=== PATIENT | female | born 1970 | race American Indian/Alaskan Native ===

== ENCOUNTER 2017-07-16 03:15 | Observation (INO) | payer OTHER ==
[2017-07-16 04:43] LABS: Basophils % (Auto) 0.6 % (0.0-1.8); Eosinophils % (Auto) 0.7 % (0.0-4.3); Hematocrit 29.5 % (30.3-42.9); Hemoglobin 9.1 gm/dl (10.1-14.3); Mean Corpuscular HGB Conc 31 % (30-34); Platelet Count 273 K/mm3 (140-440); Red Blood Count 4.83 M/mm3 (3.65-5.03); Red Cell Distribution Width 19.2 % (13.2-15.2); White Blood Count 6.1 K/mm3 (4.5-11.0)
[2017-07-16 04:46] LABS: Mean Corpuscular Hemoglobin 19 pg (28-32); Mean Corpuscular Volume 61 fl (79-97)
[2017-07-16 04:51] LABS: Anion Gap 18 mmol/L; BUN/Creatinine Ratio 12; Blood Urea Nitrogen 11 mg/dL (7-17); Calcium 10.4 mg/dL (8.4-10.2); Carbon Dioxide 28 mmol/L (22-30); Chloride 96.6 mmol/L (98-107); Glucose 173 mg/dL (65-100); Potassium 3.1 mmol/L (3.6-5.0); Sodium 139 mmol/L (137-145)
--- NOTE | 2017-07-16 04:55 | XRay Report ---
FINAL REPORT PROCEDURE: XR CHEST ROUTINE 2V TECHNIQUE: A portable AP chest radiograph was obtained at 07/16/2017 03:54 (EST) . CPT 03702 HISTORY: Difficulty in breathing COMPARISON: No prior studies are available for comparison. FINDINGS: Heart: Normal. Mediastinum/Vessels: Normal. Lungs/Pleural space: Normal. Bony thorax: No acute osseous abnormality. Life support devices: None. IMPRESSION: No acute cardiopulmonary abnormality.
[2017-07-16] MEDS ORDERED: PROVENTIL IH ONE (06:16)
[2017-07-16] MEDS ORDERED: APRESOLINE IV ONE (14:08)
[2017-07-16] MEDS ORDERED: K-DUR PO ONE (14:08)
--- NOTE | 2017-07-16 14:14 | Emergency Department Report ---
ED General Adult HPI - General Chief complaint: Chest Pain Stated complaint: Time Seen by Provider: 07/16/17 13:48 Source: patient, RN notes reviewed Mode of arrival: Ambulatory Limitations: No Limitations - History of Present Illness Initial comments: This is a 46-year-old female. She is previously unknown to this provider. She does not have a local primary care doctor. Past medical history includes hypertension and diabetes. Patient presents to the ER with a complaint of chest pain and shortness of breath. The chest pain is central. It did not radiate to the back, arms and neck. There is no vomiting or diaphoresis. There is left lower extremity pain. There is no swelling. Patient thinks that she had an outpatient stress test performed at [facility] in the beginning of the year, does not recall the results. She currently has no chest pain or shortness of breath at this time, there is no hematemesis or bright red blood per rectum, the patient does endorse that she is not , she reports her last menstrual period was last week. -: Gradual Location: chest, left, lower extremity Severity scale (0 -10): 0 Quality: aching Consistency: intermittent, now resolved Improves with: none Worsens with: none Associated Symptoms: shortness of breath - Related Data Home Medications Medication Instructions Recorded Confirmed Last Taken Lisinopril 40 mg PO DAILY 07/16/17 07/16/17 Unknown amLODIPine 10 mg PO DAILY 07/16/17 07/16/17 Unknown metFORMIN 500 mg PO BID 07/16/17 07/16/17 Unknown Allergies Allergy/AdvReac Type Severity Reaction Status Date / Time No Known Allergies Allergy Unverified 07/16/17 03:42 ED Review of Systems ROS: Stated complaint: Other details as noted in HPI Constitutional: fever, malaise Eyes: denies: vision change ENT: denies: epistaxis Respiratory: shortness of breath Cardiovascular: chest pain Gastrointestinal: denies: abdominal pain Genitourinary: denies: dysuria Musculoskeletal: arthralgia. denies: back pain Skin: denies: lesions Neurological: denies: weakness Psychiatric: denies: anxiety ED Past Medical Hx - Past Medical History Hx Hypertension: Yes Hx Diabetes: Yes Additional medical history: Fluid on Lungs - Surgical History Additional Surgical History: Tubal Ligation - Social History Smoking Status: Never Smoker Substance Use Type: None - Medications Home Medications: Home Medications Medication Instructions Recorded Confirmed Last Taken Type Lisinopril 40 mg PO DAILY 07/16/17 07/16/17 Unknown History amLODIPine 10 mg PO DAILY 07/16/17 07/16/17 Unknown History metFORMIN 500 mg PO BID 07/16/17 07/16/17 Unknown History ED Physical Exam - General Limitations: No Limitations General appearance: alert, in no apparent distress - Head Head exam: Present: atraumatic, normocephalic - Eye Eye exam: Present: normal appearance - ENT ENT exam: Present: normal exam, mucous membranes moist, normal external ear exam - Neck Neck exam: Present: normal inspection, full ROM. Absent: tenderness, meningismus - Respiratory Respiratory exam: Present: normal lung sounds bilaterally, chest wall tenderness. Absent: respiratory distress, wheezes, rales, rhonchi, stridor - Cardiovascular Cardiovascular Exam: Present: regular rate, normal rhythm, normal heart sounds, other (2+ pulses are noted in the bilateral upper and lower extremities. They are equal.). Absent: bradycardia, tachycardia, irregular rhythm, systolic murmur, diastolic murmur, rubs, gallop - GI/Abdominal GI/Abdominal exam: Present: soft, normal bowel sounds. Absent: distended, tenderness, guarding, rebound, rigid, pulsatile mass - Extremities Exam Extremities exam: Present: normal inspection, normal capillary refill. Absent: pedal edema, joint swelling - Back Exam Back exam: Present: normal inspection, full ROM. Absent: tenderness, CVA tenderness (R), CVA tenderness (L), muscle spasm, paraspinal tenderness, vertebral tenderness - Neurological Exam Neurological exam: Present: alert, oriented X3, normal gait, other (Extraocular movements intact. Tongue midline. No facial droop. Facial sensation intact to light touch in the V1, V2, V3 distribution bilaterally. 5 and 5 strength in 4 extremities.. Sensation is intact to light touch in 4 extremities.). Absent : motor sensory deficit - Psychiatric Psychiatric exam: Present: normal affect, normal mood - Skin Skin exam: Present: warm, dry, intact, normal color. Absent: rash ED Course Vital Signs 07/16/17 07/16/17 07/16/17 03:38 09:26 12:55 Temperature 98.3 F 98.2 F 98.2 F Pulse Rate 87 78 78 Respiratory 16 16 16 Rate Blood Pressure 178/92 Blood Pressure 184/95 186/105 [Left] O2 Sat by Pulse 98 97 98 Oximetry 07/16/17 07/16/17 07/16/17 13:04 14:11 14:15 Temperature Pulse Rate 80 89 Respiratory 16 18 26 H Rate Blood Pressure Blood Pressure [Left] O2 Sat by Pulse 98 100 98 Oximetry 07/16/17 07/16/17 07/16/17 14:31 14:45 14:57 Temperature Pulse Rate 80 79 78 Respiratory 24 23 Rate Blood Pressure 190/101 190/101 190/101 Blood Pressure [Left] O2 Sat by Pulse 98 99 Oximetry 07/16/17 07/16/17 07/16/17 15:00 15:15 15:31 Temperature Pulse Rate 88 88 89 Respiratory 23 19 18 Rate Blood Pressure 191/92 191/92 191/92 Blood Pressure [Left] O2 Sat by Pulse 98 100 Oximetry 07/16/17 07/16/17 07/16/17 15:45 16:00 16:29 Temperature Pulse Rate 94 H 96 H Respiratory 16 21 Rate Blood Pressure 191/92 166/87 191/92 Blood Pressure [Left] O2 Sat by Pulse 74 L 97 88 Oximetry 07/16/17 07/16/17 07/16/17 16:31 16:45 17:01 Temperature Pulse Rate 99 H 92 H 95 H Respiratory 18 14 14 Rate Blood Pressure 191/92 191/92 138/57 Blood Pressure [Left] O2 Sat by Pulse 99 97 93 Oximetry 07/16/17 07/16/17 17:15 17:31 Temperature Pulse Rate 89 94 H Respiratory 22 21 Rate Blood Pressure 166/87 166/87 Blood Pressure [Left] O2 Sat by Pulse 96 97 Oximetry - Reevaluation(s) Reevaluation #1: 07/16/17 15:48 Differential diagnosis: Pulmonary embolus, dissection, hypertensive cardiomyopathy, acute coronary syndrome Assessment and plan: 46-year-old female with typical chest pain, abnormal EKG, poor R-wave progression, markedly hypertensive, most likely EKG changes are secondary to hypertension induced cardio myopathy/hypertension-related findings. Her troponins are negative and she feels quite comfortable at this time, for x-ray the chest is negative, and she has equal pulses in 4 extremities. No pulmonary embolus or DVT risk factors, low risk by well's criteria, perc negative. However given chest pain, hypertension, CT scan of the chest will be obtained. She is chest pain-free at this time, hydralazine order for hypertension. As he did not chew glycerin also ordered. Reevaluation #2: 07/16/17 17:54 CT scan of the chest negative for acute disease. Incidental findings noted. Case discussed with Hospital physician, Dr. Reed, who accepted the patient to the medical service. ED Medical Decision Making - Lab Data Result diagrams: 07/16/17 04:08 07/16/17 04:08 Vital Signs 07/16/17 07/16/17 07/16/17 03:38 09:26 12:55 Temperature 98.3 F 98.2 F 98.2 F Pulse Rate 87 78 78 Respiratory 16 16 16 Rate Blood Pressure 178/92 Blood Pressure 184/95 186/105 [Left] O2 Sat by Pulse 98 97 98 Oximetry 07/16/17 07/16/17 13:04 14:57 Temperature Pulse Rate 78 Respiratory 16 Rate Blood Pressure 190/101 Blood Pressure [Left] O2 Sat by Pulse 98 Oximetry Lab Results 07/16/17 07/16/17 07/16/17 Range/Units 03:55 04:08 04:08 WBC 6.1 (4.5-11.0) K/mm3 RBC 4.83 (3.65-5.03) M/mm3 Hgb 9.1 L (10.1-14.3) gm/dl Hct 29.5 L (30.3-42.9) % MCV 61 L (79-97) fl MCH 19 L (28-32) pg MCHC 31 (30-34) % RDW 19.2 H (13.2-15.2) % Plt Count 273 (140-440) K/mm3 Lymph % (Auto) 24.9 (13.4-35.0) % [facility] % (Auto) 6.6 (0.0-7.3) % Eos % (Auto) 0.7 (0.0-4.3) % Baso % (Auto) 0.6 (0.0-1.8) % Lymph # 1.5 (1.2-5.4) K/mm3 [facility] # 0.4 (0.0-0.8) K/mm3 Eos # 0.0 (0.0-0.4) K/mm3 Baso # 0.0 (0.0-0.1) K/mm3 Seg Neutrophils % 67.2 (40.0-70.0) % Seg Neutrophils # 4.1 (1.8-7.7) K/mm3 Sodium 139 (137-145) mmol/L Potassium 3.1 L (3.6-5.0) mmol/L Chloride 96.6 L (98-107) mmol/L Carbon Dioxide 28 (22-30) mmol/L Anion Gap 18 mmol/L BUN 11 (7-17) mg/dL Creatinine 0.9 (0.7-1.2) mg/dL Estimated GFR > 60 ml/min BUN/Creatinine Ratio 12 % Glucose 173 H (65-100) mg/dL POC Glucose 191 H (70-105) Calcium 10.4 H (8.4-10.2) mg/dL Magnesium (1.7-2.3) mg/dL Troponin T < 0.010 (0.00-0.029) ng/mL NT-Pro-B Natriuret Pep 528.6 H (0-450) pg/mL 07/16/17 07/16/17 07/16/17 Range/Units 07:03 10:15 10:15 WBC (4.5-11.0) K/mm3 RBC (3.65-5.03) M/mm3 Hgb (10.1-14.3) gm/dl Hct (30.3-42.9) % MCV (79-97) fl MCH (28-32) pg MCHC (30-34) % RDW (13.2-15.2) % Plt Count (140-440) K/mm3 Lymph % (Auto) (13.4-35.0) % [facility] % (Auto) (0.0-7.3) % Eos % (Auto) (0.0-4.3) % Baso % (Auto) (0.0-1.8) % Lymph # (1.2-5.4) K/mm3 [facility] # (0.0-0.8) K/mm3 Eos # (0.0-0.4) K/mm3 Baso # (0.0-0.1) K/mm3 Seg Neutrophils % (40.0-70.0) % Seg Neutrophils # (1.8-7.7) K/mm3 Sodium (137-145) mmol/L Potassium (3.6-5.0) mmol/L Chloride (98-107) mmol/L Carbon Dioxide (22-30) mmol/L Anion Gap mmol/L BUN (7-17) mg/dL Creatinine (0.7-1.2) mg/dL Estimated GFR ml/min BUN/Creatinine Ratio % Glucose (65-100) mg/dL POC Glucose (70-105) Calcium (8.4-10.2) mg/dL Magnesium 1.80 (1.7-2.3) mg/dL Troponin T < 0.010 < 0.010 (0.00-0.029) ng/mL NT-Pro-B Natriuret Pep (0-450) pg/mL - EKG Data -: EKG Interpreted by Me - EKG Data 07/16/17 15:49 Sinus, 86 bpm, normal axis, high left ventricular voltage, poor R-wave progression, abnormal EKG, not morphologically consistent with STEMI, there is no prior for comparison. Repeat EKG unchanged. - Radiology Data Radiology results: report reviewed, image reviewed interpreted by me: X-ray of the chest negative for acute disease CT scan of the chest is negative for acute finding Critical care attestation.: If time is entered above; I have spent that time in minutes in the direct care of this critically ill patient, excluding procedure time. ED Disposition Clinical Impression: Chest pain, Abnormal EKG, Hypertension Disposition: OP ADMIT IP TO THIS HOSP Is pt being admited?: Yes Does the pt Need Aspirin: Yes Condition: Stable Instructions: Chest Pain (ED), Hypertension (ED) Referrals: PRIMARY CARE, [Primary Care Provider] - 3-5 Days
[2017-07-16] MEDS: KCL 10MEQ/100ML 10 MEQ/100 ML BAG IV SCH ×2 (14:52→17:41)
[2017-07-16] MEDS ORDERED: NACL 0.9% 250ML 250 ML ONE (15:03)
[2017-07-16] MEDS ORDERED: NACL 0.9% 250ML 250 ML IV ONE (15:19)
[2017-07-16] MEDS ORDERED: NITROSTAT SL PRN (15:50)
--- NOTE | 2017-07-16 17:41 | Cat Scan Report ---
FINAL REPORT PROCEDURE: CT ANGIO CHEST TECHNIQUE: Computerized tomographic angiography of the chest was performed after the IV injection of iodinated nonionic contrast including image processing. The image data was postprocessed using 2-dimensional multiplanar reformatted (MPR) and 3-dimensional (MIP and/or volume rendered) techniques. HISTORY: Chest pain. Short of breath. Evaluate pulmonary embolus. COMPARISON: No prior studies are available for comparison. FINDINGS: Pulmonary outflow tract, right and left main pulmonary arteries and their proximal branches: Clear, no filling defects seen to suggest pulmonary embolus. Pericardium: No evidence of pericardial effusion. Heart size upper normal to mildly enlarged. Thoracic aorta: No evidence of aneurysmal dilatation or dissection. Coronary arteries: Are unremarkable. Mediastinum and hilar regions: Nonspecific subcentimeter lymph nodes are visualized. No pathologically enlarged lymph nodes or masses are identified. Thyroid gland appears to be enlarged and nodular. Consider follow-up thyroid ultrasound for further evaluation. Lung Reese: Small amount of dependent atelectasis appears to be present bilaterally. No dense consolidations or effusions are seen. There is no evidence of pneumothorax. Upper abdomen: There is a 2.6 centimeter low-density nodule in the upper 3rd of the right kidney which appears represent a peripelvic cyst. The upper abdomen is otherwise unremarkable. Other: There is mild to moderate thoracic scoliosis. No acute bony abnormalities are identified. IMPRESSION: No evidence of pulmonary embolus. Dependent atelectasis visualized. Peripelvic cyst visualize right kidney. Thoracic scoliosis. Thyroid gland appears to be enlarged and somewhat nodular. Consider follow-up thyroid ultrasound.
[2017-07-16] MEDS ORDERED: BABY ASPIRIN PO ONE (17:55)
--- NOTE | 2017-07-16 19:06 | History and Physical Report ---
History of Present Illness Date of examination: 07/16/17 Date of admission: 07/16/17 17:55 Chief complaint: CC: SOB on minimal exertion 2 ) Chest tightness since AM History of present illness: JUAN 46 y/o AAF with history of HTN and T2dm comes in for chest tightness since AM .Intermittent in nature.Not radiating.Pain is about 6/10.No diaphoresis or palpitations.. Has Sob on minimal exertion and lying flat.Very poor historian.No fever or chills.No recent travel.No exacerbating or relieving factors. Past History Past Medical History: diabetes, hypertension Social history: lives with family, full code Family history: hypertension Medications and Allergies Allergies Allergy/AdvReac Type Severity Reaction Status Date / Time No Known Allergies Allergy Unverified 07/16/17 03:42 Home Medications Medication Instructions Recorded Confirmed Last Taken Type Lisinopril 40 mg PO DAILY 07/16/17 07/16/17 Unknown History amLODIPine 10 mg PO DAILY 07/16/17 07/16/17 Unknown History metFORMIN 500 mg PO BID 07/16/17 07/16/17 Unknown History Active Meds: Active Medications Nitroglycerin (Nitrostat) 0.4 mg SL .Q5MIN PRN PRN Reason: Chest Pain Review of Systems All systems: negative Constitutional: no weight loss, no weight gain, no fever, no chills, no sweats, no night sweats Ears, nose, mouth and throat: no dysphagia, no hoarseness, no sore throat, no swelling in mouth Breasts: deferred Cardiovascular: chest pain, orthopnea, shortness of breath, dyspnea on exertion Respiratory: shortness of breath, dyspnea on exertion, no cough, no cough with sputum, no excessive sputum, no hemoptysis, no congestion, no wheezing, no pleurisy Gastrointestinal: no abdominal pain, no nausea, no vomiting, no diarrhea, no constipation, no change in bowel habits, no hematemesis, no coffee ground emesis Genitourinary Female: no flank pain, no menorrhagia, no dysuria, no urinary frequency, no urgency, no stress incontinence Menstruation: currently menstrual Musculoskeletal: no neck stiffness, no neck pain, no shooting arm pain, no arm numbness/tingling, no low back pain, no shooting leg pain, no leg numbness/ tingling, no redness of joints Integumentary: no rash, no pruritis, no redness, no sores, no wounds, no jaundice, no boils, no blisters Neurological: no head injury, no transient paralysis, no paralysis, no weakness , no parathesias, no numbness, no seizures, no syncope Psychiatric: no anxiety, no memory loss, no change in sleep habits, no sleep disturbances Endocrine: no cold intolerance, no heat intolerance, no polyphagia, no excessive thirst, no polydipsia, no polyuria Hematologic/Lymphatic: no easy bruising, no easy bleeding Allergic/Immunologic: no urticaria, no allergic rhinitis, no wheezing Exam - Physical Exam Narrative exam: Lying comfortably - Constitutional Vitals: Temp Pulse Resp BP Pulse Ox 98.2 F 94 H 21 166/87 97 07/16/17 12:55 07/16/17 17:31 10 17:31 07/16/17 17:31 07/16/17 17:31 General appearance: Present: no acute distress, well-nourished - EENT Eyes: Present: PERRL ENT: hearing intact, clear oral mucosa - Neck Neck: Present: supple, normal ROM - Respiratory Respiratory effort: normal Respiratory: bilateral: CTA - Cardiovascular Heart rate: 70 Rhythm: regular Heart Sounds: Present: S1 & S2. Absent: rub, click - Extremities Extremities: no ischemia, pulses intact, pulses symmetrical, No edema Peripheral Pulses: within normal limits - Abdominal General gastrointestinal: Present: soft, non-tender, non-distended, normal bowel sounds Female genitourinary: Present: normal - Rectal Rectal Exam: deferred - Integumentary Integumentary: Present: clear, warm, dry - Musculoskeletal Musculoskeletal: gait normal, strength equal bilaterally - Psychiatric Psychiatric: appropriate mood/affect, intact judgment & insight - Neurologic Neurologic: CNII-XII intact, moves all extremities - Allied Health Allied health notes reviewed: nursing, case management Results - Labs CBC & Chem 7: 07/17/17 05:33 07/17/17 05:33 Labs: Laboratory Last Values WBC 6.1 K/mm3 (4.5-11.0) 07/16/17 04:08 RBC 4.83 M/mm3 (3.65-5.03) 07/16/17 04:08 Hgb 9.1 gm/dl (10.1-14.3) L 07/16/17 04:08 Hct 29.5 % (30.3-42.9) L 07/16/17 04:08 MCV 61 fl (79-97) L 07/16/17 04:08 MCH 19 pg (28-32) L 07/16/17 04:08 MCHC 31 % (30-34) 07/16/17 04:08 RDW 19.2 % (13.2-15.2) H 07/16/17 04:08 Plt Count 273 K/mm3 (140-440) 07/16/17 04:08 Lymph % (Auto) 24.9 % (13.4-35.0) 07/16/17 04:08 [facility] % (Auto) 6.6 % (0.0-7.3) 07/16/17 04:08 Eos % (Auto) 0.7 % (0.0-4.3) 07/16/17 04:08 Baso % (Auto) 0.6 % (0.0-1.8) 07/16/17 04:08 Lymph # 1.5 K/mm3 (1.2-5.4) 07/16/17 04:08 [facility] # 0.4 K/mm3 (0.0-0.8) 07/16/17 04:08 Eos # 0.0 K/mm3 (0.0-0.4) 07/16/17 04:08 Baso # 0.0 K/mm3 (0.0-0.1) 07/16/17 04:08 Seg Neutrophils % 67.2 % (40.0-70.0) 07/16/17 04:08 Seg Neutrophils # 4.1 K/mm3 (1.8-7.7) 07/16/17 04:08 Sodium 139 mmol/L (137-145) 07/16/17 04:08 Potassium 3.1 mmol/L (3.6-5.0) L 07/16/17 04:08 Chloride 96.6 mmol/L (98-107) L 07/16/17 04:08 Carbon Dioxide 28 mmol/L (22-30) 07/16/17 04:08 Anion Gap 18 mmol/L 07/16/17 04:08 BUN 11 mg/dL (7-17) 07/16/17 04:08 Creatinine 0.9 mg/dL (0.7-1.2) 07/16/17 04:08 Estimated GFR > 60 ml/min 07/16/17 04:08 BUN/Creatinine Ratio 12 % 07/16/17 04:08 Glucose 173 mg/dL (65-100) H 07/16/17 04:08 POC Glucose 191 (70-105) H 07/16/17 03:55 Calcium 10.4 mg/dL (8.4-10.2) H 07/16/17 04:08 Magnesium 1.80 mg/dL (1.7-2.3) 07/16/17 10:15 Troponin T < 0.010 ng/mL (0.00-0.029) 07/16/17 10:15 NT-Pro-B Natriuret Pep 528.6 pg/mL (0-450) H 07/16/17 04:08 - Imaging and Cardiology EKG: report reviewed Chest x-ray: report reviewed (NAF) Imaging and Cardiology: CTA-No PE.Thyroid gland enlarged.Ultrasound suggested Assessment and Plan Advance Directives: Yes (Full code) VTE prophylaxis?: Chemical Plan of care discussed with patient/family: Yes - Patient Problems (1) Chest pain in adult Current Visit: Yes Status: Acute Plan to address problem: R/o [place] protocol.Serial cardiac enzymes and Lexiscan. (2) Acute exacerbation of CHF (congestive heart failure) Current Visit: Yes Status: Acute Qualifiers: Congestive heart failure type: diastolic Qualified Code(s): I50.33 - Acute on chronic diastolic (congestive) heart failure Plan to address problem: IV Lasix and check ECHO. BNP in mid 500's (3) Anemia Current Visit: Yes Status: Chronic Qualifiers: Anemia type: iron deficiency Iron deficiency anemia type: chronic blood loss Vitamin B12 deficiency anemia type: V Folate deficiency anemia type: F Bone marrow failure anemia type: B Hemolytic anemia type: H Other causes of anemia: O Chronic kidney disease stage: C Qualified Code(s): D50.0 - Iron deficiency anemia secondary to blood loss (chronic) Plan to address problem: Iron /B12 levels ordered (4) Hypokalemia Current Visit: Yes Status: Acute Plan to address problem: Supplemented (5) HTN (hypertension), benign Current Visit: Yes Status: Chronic Plan to address problem: Cont Amlodipine and Lisinopril (6) T2DM (type 2 diabetes mellitus) Current Visit: Yes Status: Chronic Qualifiers: Diabetes mellitus complication status: without complication Diabetes mellitus complication detail: D Diabetic retinopathy severity: D Proliferative retinopathy type: P Diabetes mellitus macular edema: D Diabetes mellitus intermediate insulin use: D Laterality: L Chronic kidney disease stage: C Plan to address problem: Cont Metformin and coverage (7) DVT prophylaxis Current Visit: Yes Status: Acute Plan to address problem: on Lovenox
[2017-07-16] MEDS ORDERED: DILAUDID IV PRN (19:13)
[2017-07-16] MEDS ORDERED: AMBIEN PO PRN ×2 (19:13→22:00)
[2017-07-16] MEDS ORDERED: PERCOCET 5/325 PO PRN (19:13)
[2017-07-16] MEDS ORDERED: MILK OF MAGNESIA PO PRN (19:13)
[2017-07-16] MEDS ORDERED: ZOFRAN IV PRN (19:13)
[2017-07-16] MEDS ORDERED: DULCOLAX PR PRN (19:13)
[2017-07-16] MEDS ORDERED: TYLENOL PO PRN (19:13)
[2017-07-16] MEDS: PEPCID IV SCH (22:29)
[2017-07-17 06:01] LABS: Basophils % (Auto) 0.9 % (0.0-1.8); Hematocrit 28.5 % (30.3-42.9); Hemoglobin 8.8 gm/dl (10.1-14.3); Mean Corpuscular HGB Conc 31 % (30-34); Platelet Count 236 K/mm3 (140-440); Red Blood Count 4.63 M/mm3 (3.65-5.03); Red Cell Distribution Width 19.1 % (13.2-15.2); White Blood Count 5.1 K/mm3 (4.5-11.0)
[2017-07-17 06:03] LABS: Mean Corpuscular Hemoglobin 19 pg (28-32); Mean Corpuscular Volume 62 fl (79-97)
[2017-07-17 06:27] LABS: Alanine Aminotransferase 8 units/L (7-56); Albumin 3.6 g/dL (3.9-5); Albumin/Globulin Ratio 1.2 %; Alkaline Phosphatase 31 units/L (35-129); Anion Gap 16 mmol/L; BUN/Creatinine Ratio 13; Blood Urea Nitrogen 10 mg/dL (7-17); Calcium 9.6 mg/dL (8.4-10.2); Carbon Dioxide 25 mmol/L (22-30); Glucose 144 mg/dL (65-100); Potassium 3.2 mmol/L (3.6-5.0); Sodium 139 mmol/L (137-145); Total Protein 6.5 g/dL (6.3-8.2)
[2017-07-17] MEDS: NOVOLOG SUB-Q SCH ×4 (08:00→22:03)
[2017-07-17] MEDS ORDERED: K-DUR PO ONE (08:30)
[2017-07-17] MEDS ORDERED: LEXISCAN IV ONE ×2 (08:39→08:40)
[2017-07-17] MEDS: GLUCOPHAGE PO SCH ×2 (09:00→17:53)
[2017-07-17] MEDS ORDERED: LASIX IV SCH (10:00)
[2017-07-17] MEDS ORDERED: NON-FORMULARY (Metformin 500 MG) PO SCH (10:00)
[2017-07-17] MEDS ORDERED: NON-FORMULARY (Lisinopril 40 MG) PO SCH (10:00)
[2017-07-17] MEDS ORDERED: NON-FORMULARY (Amlodipine 10 MG) PO SCH (10:00)
[2017-07-17] MEDS: PEPCID IV SCH (11:56)
[2017-07-17] MEDS: ZESTRIL PO SCH (11:57)
[2017-07-17] MEDS: NORVASC PO SCH (11:57)
[2017-07-17] MEDS: APRESOLINE IV PRN ×2 (12:48→17:54)
--- NOTE | 2017-07-17 14:09 | Event Note ---
Date: 07/17/17 Detailed cardiology consultation dictated. A: #1: Chest pain #2: Accelerated HTN #3: DM #4: ? cardiomyopathy #5: Anemia #6: Hypokalemia P: S/p lexiscan MPI stress test this AM which was negative for ischemia, EF 45%. Await echo results. Optimize anti-hypertensive regimen. Replete serum K+. Wendi GARCIA NP / DR. ROSEN
--- NOTE | 2017-07-17 15:13 | Progress Note ---
Assessment and Plan Assessment and plan: Patient is a 46 y/o AAF with history of HTN and T2dm comes in for chest tightness since AM .Intermittent in nature.Not radiating.Pain is about 6/10.No diaphoresis or palpitations.. Patient reports her blood pressure normally runs above 180 at home due to lack of compliance with medications. This is secondary to lack of primary care physician. She proceeded to have stress test done and is negative. Atypical chest pain likely secondary to Hypertensive urgency * Negative stress test, continue metoprolol, Norvasc, lisinopril Hypertensive urgency * Add hydralazine prn, BB, NORVASC, Lisinopril. Diabetes Mellitus * Continue metformin, sliding scale coverage Cardiomyopathy-?Hypertensive * No evidence of CHF, monitor Echo Anemia * Stable, recommend outpatient GI eval. Hypokalemia * Replaced Metabolic Acidosis * give sodium bicarbonate Enlarged Thyroid * Outpatient Ultrasound evaluation with PCP. DVT/GI * Enoxparin History Interval history: Patient seen and examined in no acute distress Hospitalist Physical - Physical exam Narrative exam: VITAL SIGNS: Reviewed. GENERAL: The patient appeared well nourished and normally developed. Vital signs as documented. HEAD: No signs of head trauma. EYES: Pupils are equal. Extraocular motions intact. EARS: Hearing grossly intact. MOUTH: Oropharynx is normal. NECK: No adenopathy, no JVD. CHEST: Chest with clear breath sounds bilaterally. No wheezes, rales, or rhonchi. CARDIAC: Regular rate and rhythm. S1 and S2, without murmurs, gallops, or rubs. VASCULAR: No Edema. Peripheral pulses normal and equal in all extremities. ABDOMEN: Soft, without detectable tenderness. No sign of distention. No rebound or guarding, and no masses palpated. Bowel Sounds normal. MUSCULOSKELETAL: Good range of motion of all major joints. Extremities without clubbing, cyanosis or edema. NEUROLOGIC EXAM: Alert and oriented x 3. No focal sensory or strength deficits. Speech normal. Follows commands. PSYCHIATRIC: Mood normal. SKIN: No rash or lesions. - Constitutional Vitals: Temp Pulse Resp BP Pulse Ox 98.1 F 83 18 202/111 100 07/17/17 05:05 07/17/17 12:48 07/17/17 05:05 07/17/17 12:48 07/17/17 05:05 General appearance: Present: no acute distress, well-nourished Results - Labs CBC & Chem 7: 07/17/17 05:33 07/17/17 05:33 Labs: Laboratory Last Values WBC 5.1 K/mm3 (4.5-11.0) 07/17/17 05:33 RBC 4.63 M/mm3 (3.65-5.03) 07/17/17 05:33 Hgb 8.8 gm/dl (10.1-14.3) L 07/17/17 05:33 Hct 28.5 % (30.3-42.9) L 07/17/17 05:33 MCV 62 fl (79-97) L 07/17/17 05:33 MCH 19 pg (28-32) L 07/17/17 05:33 MCHC 31 % (30-34) 07/17/17 05:33 RDW 19.1 % (13.2-15.2) H 07/17/17 05:33 Plt Count 236 K/mm3 (140-440) 07/17/17 05:33 Lymph % (Auto) 30.6 % (13.4-35.0) 07/17/17 05:33 Robertson % (Auto) 8.7 % (0.0-7.3) H 07/17/17 05:33 Eos % (Auto) 1.0 % (0.0-4.3) 07/17/17 05:33 Baso % (Auto) 0.9 % (0.0-1.8) 07/17/17 05:33 Lymph # 1.5 K/mm3 (1.2-5.4) 07/17/17 05:33 Robertson # 0.4 K/mm3 (0.0-0.8) 07/17/17 05:33 Eos # 0.1 K/mm3 (0.0-0.4) 07/17/17 05:33 Baso # 0.0 K/mm3 (0.0-0.1) 07/17/17 05:33 Seg Neutrophils % 58.8 % (40.0-70.0) 07/17/17 05:33 Seg Neutrophils # 3.0 K/mm3 (1.8-7.7) 07/17/17 05:33 Sodium 139 mmol/L (137-145) 07/17/17 05:33 Potassium 3.2 mmol/L (3.6-5.0) L 07/17/17 05:33 Chloride 101.0 mmol/L (98-107) 07/17/17 05:33 Carbon Dioxide 25 mmol/L (22-30) 07/17/17 05:33 Anion Gap 16 mmol/L 07/17/17 05:33 BUN 10 mg/dL (7-17) 07/17/17 05:33 Creatinine 0.8 mg/dL (0.7-1.2) 07/17/17 05:33 Estimated GFR > 60 ml/min 07/17/17 05:33 BUN/Creatinine Ratio 13 % 07/17/17 05:33 Glucose 144 mg/dL (65-100) H 07/17/17 05:33 POC Glucose 141 (70-105) H 07/16/17 21:16 Hemoglobin A1c 7.1 % (4-6) H 07/16/17 20:15 Calcium 9.6 mg/dL (8.4-10.2) 07/17/17 05:33 Magnesium 1.80 mg/dL (1.7-2.3) 07/16/17 10:15 Iron 16 ug/dL (37-170) L 07/17/17 07:16 TIBC 359 mcg/dL (250-450) 07/17/17 07:16 % Saturation 4.46 % 07/17/17 07:16 Transferrin 309 mg/dl (192-382) 07/17/17 07:16 Total Bilirubin 0.20 mg/dL (0.1-1.2) 07/17/17 05:33 AST 8 units/L (5-40) 07/17/17 05:33 ALT 8 units/L (7-56) 07/17/17 05:33 Alkaline Phosphatase 31 units/L (35-129) L 07/17/17 05:33 Troponin T < 0.010 ng/mL (0.00-0.029) 07/16/17 10:15 NT-Pro-B Natriuret Pep 528.6 pg/mL (0-450) H 07/16/17 04:08 Total Protein 6.5 g/dL (6.3-8.2) 07/17/17 05:33 Albumin 3.6 g/dL (3.9-5) L 07/17/17 05:33 Albumin/Globulin Ratio 1.2 % 07/17/17 05:33 Vitamin B12 212.8 pg/mL (211-911) 07/17/17 07:16 - Imaging and Cardiology CT scan - chest: image reviewed (no acute pathology)
--- NOTE | 2017-07-17 21:37 | Treadmill Report ---
REASON FOR STUDY: Chest pain. IMAGING PROTOCOL: The patient received 10 mCi of Technetium 99m Tetrofosmin for resting image and 28 mCi of Technetium 99m Tetrofosmin for stress imaging. The imaging for the whole procedure was completed 30-90 minutes following the initial injection of Technetium 99m tetrofosmin. The SPECT imaging in the 180 degree arc was performed in the right anterior oblique projection. Computerized reconstruction of the images was performed for analysis. IMAGING RESULTS: Cavity is mildly dilated, stress and rest. Distribution radionuclide is normal in the anterior, inferior, septal, and apical regions. EF of 35% with moderate global hypokinesis. The patient infused Lexiscan with no EKG changes. SUMMARY: 1. Negative Lexiscan EKG. 2. Normal rest and stress myocardial perfusion scan. No significant stress ischemia noted. 3. Gated SPECT; EF around 35%, moderate global hypokinesis, we would suggest an echocardiogram for determination of LV function. JOB# [id number] ARABELLA/RUTHY
[2017-07-17] MEDS ORDERED: LOPRESSOR PO SCH (22:00)
[2017-07-17] MEDS: LOPRESSOR PO SCH (22:02)
[2017-07-17] MEDS: PEPCID PO SCH (22:02)
--- NOTE | 2017-07-18 01:08 | Consultation ---
Consultation is requested by Dr. Reed. CONSULTING PHYSICIAN: Dr. Wendi Rogers HISTORY OF PRESENT ILLNESS: This is a 46-year-old -[place] female who was admitted to the hospital with complaints of chest tightness and shortness of breath for further evaluation and management. History is now obtained from the patient. The patient stated that she is known to have hypertension and type 2 diabetes mellitus and she has been taking medications. Then, she started experiencing a tightness type of feeling over the anterior chest that is in retrosternal area at about 10:00 p.m. It persisted until 3:00 a.m. in the morning and finally it subsided. That is when she decided to come to the Emergency Room. The patient was evaluated and then admitted to the hospital. She does give a history of some exertional dyspnea, but the patient said that even though that she does not exercise regularly, she stays active. No history of any orthopnea or PND. She does complain of edema of the ankles. No history of any claudications. No dizziness or syncope. No history of any orthopnea or PND. The patient denies any history of wheezing or asthma. No GI or complaints at the present time. She is a nonsmoker and nonalcoholic. The patient stated that she was admitted to [facility] in 10/2016 with complaints of chest tightness, and at that time, she had a stress thallium test done, which apparently was reported normal. We do not have those records available at the present time. PAST MEDICAL HISTORY: Includes Hypertension, type 2 diabetes mellitus. SOCIAL HISTORY: The patient lives with family. FAMILY HISTORY: Hypertension noted. ALLERGIES: None known to medications. MEDICATIONS: At the time of admission, the patient was on lisinopril 40 mg p.o. daily, amlodipine 10 mg p.o. daily, metformin 500 mg p.o. b.i.d. REVIEW OF SYSTEMS: CARDIOVASCULAR: As described above. RESPIRATORY: No history of wheezing or asthma. No GI or complaints at this time. PHYSICAL EXAMINATION: GENERAL: This is a 46-year-old woman, well-built, well nourished, in no acute distress at the present time. The patient is conscious, alert, oriented, and afebrile. Bowel sounds are normal and stable. VITAL SIGNS: At the time of admission, the patient's temperature was normal. Blood pressure was 166/87 and heart rate was 94 per minute and regular. CHEST: Clear. No rales or rhonchi. CARDIOVASCULAR: S1, S2 heard well. Grade 1/6 systolic murmur noted. No diastolic murmur. No gallops. ABDOMEN: Soft, nontender. Grossly nonpalpable. Bowel sounds are heard normally. EXTREMITIES: Trace edema. No calf tenderness. Good pedal pulses. NEUROLOGIC: Evaluation was grossly within normal limits. LABORATORY DATA: The patient's hemoglobin was 8.8, hematocrit was 28.5, platelet count was 236,000. The patient's blood sugar was 144 and BUN was 10, creatinine 0.8 and potassium was 3.2. ASSESSMENT AND PLAN: This is a 46-year-old female who is now admitted to the hospital with complaints of chest tightness of prolonged nature prior to admission for further evaluation and management. The patient is known to have hypertension and type 2 diabetes mellitus. On admission, the patient was also noted to be anemic and she has hypokalemia on the laboratory data. Following admission, myocardial infarction was ruled out. The patient underwent a stress thallium test this morning, which showed no significant reversible ischemia. Calculated ejection fraction was 45%. I had a long discussion with the patient. I did explain to her that the test is negative for any suggestion of ischemia or angina. We will try to obtain echocardiogram to assess the LV function and make sure that is normal. Meanwhile, we will correct the hypokalemia. Anemia needs followup. I explained this to her too. Importance of keeping the blood pressure, blood sugar and cholesterol under control was discussed with the patient. Limitations of stress thallium test also explained to the patient. We will follow up on the echocardiogram. Thank you very much for this consultation. JOB# [id number] TREASURE/URTHY
[2017-07-18 05:00] VITALS: BP 170/84
[2017-07-18] MEDS ORDERED: LASIX IV SCH (06:00)
[2017-07-18 07:04] LABS: Anion Gap 17 mmol/L; BUN/Creatinine Ratio 11; Blood Urea Nitrogen 8 mg/dL (7-17); Calcium 9.9 mg/dL (8.4-10.2); Carbon Dioxide 26 mmol/L (22-30); Chloride 98.2 mmol/L (98-107); Glucose 146 mg/dL (65-100); Potassium 3.3 mmol/L (3.6-5.0); Sodium 138 mmol/L (137-145)
[2017-07-18] MEDS: NOVOLOG SUB-Q SCH (07:55)
--- NOTE | 2017-07-18 08:29 | Discharge Summary ---
Providers - Providers Date of Admission: 07/16/17 17:55 Date of discharge: 07/18/17 Attending physician: BRENDA GUEVARA MD 07/16/17 19:13 Consult to Physician [CONS] Routine Consulting Provider: GRETCHEN DUBOSE Reason For Exam: chf/cp Place consult to:: Cliff Notified:: Teresa Phone number called:: in House Was contact made?: Yes If yes, spoke with:: Teresa Time called:: 10:00 Primary care physician: [employer] Hospitalization Reason for admission: chest pain Condition: Stable Hospital course: Patient is a 46 y/o AAF with history of HTN and T2dm comes in for chest tightness since AM .Intermittent in nature.Not radiating.Pain is about 6/10.No diaphoresis or palpitations.. Patient reports her blood pressure normally runs above 180 at home due to lack of compliance with medications. This is secondary to lack of primary care physician. She proceeded to have stress test done and is negative. Patient presented to have a stress test which was negative. Was seen by cardiology and advised about the result of the stress test. Patient's blood pressure was controlled with initiation of home blood pressure medication. Extensive discussion with him about diabetes compliance. No evidence of CHF was noted echocardiogram did reveal an ejection fraction of 40-45% with diastolic dysfunction. Patient was advised on monitoring blood pressure of patient. Monitor diet to include heart healthy diet. She is clinically stable at this time for discharge she did have anemia which I recommended an outpatient GI evaluation to verbalized understanding also recommended outpatient [employer] evaluation clinical condition is stable at this point for discharge advised the patient to follow up on enlarged thyroid and lipid images study with the primary care physician. Discharge diagnoses Atypical chest pain likely secondary to Hypertensive urgency Hypertensive urgency Diabetes Mellitus Cardiomyopathy-?Hypertensive Anemia Diastolic heart failure-stable Hypokalemia Metabolic Acidosis Enlarged Thyroid Disposition: DC-01 TO HOME OR SELFCARE Time spent for discharge: 35 mins Core Measure Documentation - Palliative Care Palliative Care/ Comfort Measures: Not Applicable - Core Measures Any of the following diagnoses?: none - VTE Discharge Requirements Deep Vein Thrombosis/Pulmonary Embolism Present on Admission: No Exam - Physical Exam Narrative exam: VITAL SIGNS: Reviewed. GENERAL: The patient appeared well nourished and normally developed. Vital signs as documented. HEAD: No signs of head trauma. EYES: Pupils are equal. Extraocular motions intact. EARS: Hearing grossly intact. MOUTH: Oropharynx is normal. NECK: No adenopathy, no JVD. CHEST: Chest with clear breath sounds bilaterally. No wheezes, rales, or rhonchi. CARDIAC: Regular rate and rhythm. S1 and S2, without murmurs, gallops, or rubs. VASCULAR: No Edema. Peripheral pulses normal and equal in all extremities. ABDOMEN: Soft, without detectable tenderness. No sign of distention. No rebound or guarding, and no masses palpated. Bowel Sounds normal. MUSCULOSKELETAL: Good range of motion of all major joints. Extremities without clubbing, cyanosis or edema. NEUROLOGIC EXAM: Alert and oriented x 3. No focal sensory or strength deficits. Speech normal. Follows commands. PSYCHIATRIC: Mood normal. SKIN: No rash or lesions. - Constitutional Vitals: Temp Pulse Resp BP Pulse Ox 98.6 F 99 H 18 170/84 99 07/18/17 04:57 07/18/17 04:57 07/18/17 04:57 07/18/17 04:57 07/18/17 04:57 Plan Activity: advance as tolerated, fall precautions Diet: low cholesterol, diabetic Special Instructions: record daily weights, record daily BP diary, record blood sugar diary Additional Instructions: Recommend outpatient eval with Irr[employer] Handler and [employer] to be arranged by PCP. If no PCP patient can follow with [facility] Follow up with: PRIMARY CARE, [Primary Care Provider] - 3-5 Days Prescriptions: amLODIPine 10 mg PO DAILY #30 Famotidine [Pepcid] 20 mg PO BID #30 tablet Lisinopril [Zestril TAB] 40 mg PO QDAY #30 tablet metFORMIN [Glucophage] 500 mg PO BIDDIAB #60 tablet Metoprolol [Lopressor TAB] 25 mg PO BID #60 tablet
[2017-07-18] MEDS: GLUCOPHAGE PO SCH (08:50)
[2017-07-18] MEDS: NORVASC PO SCH (09:23)
[2017-07-18] MEDS: PEPCID PO SCH (09:23)
[2017-07-18] MEDS: LOPRESSOR PO SCH (09:23)
[2017-07-18] MEDS: ZESTRIL PO SCH (09:23)
== END 2017-07-18 12:13 | disposition home or self-care (01) ==
LOC: ED 03:15 → 4A 17:55
PROVIDERS: ADMIT Internal Medicine; ATTEND Internal Medicine
DX: R07.89 Other chest pain (principal); R94.31 Abnormal electrocardiogram [ECG] [EKG]; D64.9 Anemia, unspecified; E87.6 Hypokalemia; E11.9 Type 2 diabetes mellitus without complications; I42.9 Cardiomyopathy, unspecified; E87.2 Acidosis; E04.9 Nontoxic goiter, unspecified; I11.0 Hypertensive heart disease with heart failure; I50.9 Heart failure, unspecified
CPT/HCPCS: 36415; 71020; 71275; 78452; 80048; 80053; 82607; 82747; 82962; 83036; 83550; 83735; 83880; 84484; 85025; 93005; 93010; 93017; 93306; 96361; 96365; 96372; 96375; 96376; 99285; A9502; G0378; J0360; J1940; J2785; J3480; J7050; Q9967; J1815

== ENCOUNTER 2018-04-26 00:41 | Inpatient (IN) | payer OTHER ==
[2018-04-26 01:22] LABS: Basophils # (Auto) 0.1 K/mm3 (0.0-0.1); Basophils % (Auto) 1.4 % (0.0-1.8); Eosinophils # (Auto) 0.1 K/mm3 (0.0-0.4); Eosinophils % (Auto) 0.9 % (0.0-4.3); Hematocrit 26.2 % (30.3-42.9); Hemoglobin 7.9 gm/dl (10.1-14.3); Lymphocytes # (Auto) 1.7 K/mm3 (1.2-5.4); Mean Corpuscular HGB Conc 30 % (30-34); Monocytes # (Auto) 0.5 K/mm3 (0.0-0.8); Monocytes % (Auto) 6.7 % (0.0-7.3); Platelet Count 212 K/mm3 (140-440); Red Cell Distribution Width 19.3 % (13.2-15.2)
[2018-04-26 01:32] LABS: Mean Corpuscular Hemoglobin 19 pg (28-32); Mean Corpuscular Volume 62 fl (79-97)
[2018-04-26 01:38] LABS: Alanine Aminotransferase 21 units/L (7-56); BUN/Creatinine Ratio 13; Blood Urea Nitrogen 13 mg/dL (7-17); Calcium 10.8 mg/dL (8.4-10.2); Hemolysis Index 8
--- NOTE | 2018-04-26 06:43 | Emergency Department Report ---
HPI - General Chief Complaint: Dyspnea/Respdistress Time Seen by Provider: 04/26/18 06:14 - HPI HPI: 47-year-old female presents to the emergency department for complaint of a three-day history of shortness of breath. Symptoms worsen when she is laying flat. It is associated with a mixed dry and productive cough. She denies any chest pain, fever, nausea, vomiting, diaphoresis. She has a history of CHF, diabetes, hypertension and says she is compliant with her medications. 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 She denies any tobacco or illicit drug use or abuse. No recent travel or sick contacts at home. She has not taken anything for her symptoms prior to presentation. ED Past Medical Hx - Past Medical History Hx Hypertension: Yes Hx Congestive Heart Failure: Yes Hx Diabetes: Yes Hx Asthma: No Hx COPD: No Hx HIV: No Additional medical history: Fluid on Lungs - Surgical History Additional Surgical History: Tubal Ligation - Social History Smoking Status: Never Smoker Substance Use Type: Alcohol - Medications Home Medications: Home Medications Medication Instructions Recorded Confirmed Last Taken Type Lisinopril 40 mg PO DAILY 07/16/17 07/16/17 Unknown History metFORMIN 500 mg PO BID 07/16/17 07/16/17 Unknown History Famotidine [Pepcid] 20 mg PO BID #30 tablet 07/18/17 Unknown Rx Lisinopril [Zestril TAB] 40 mg PO QDAY #30 tablet 07/18/17 Unknown Rx Metoprolol [Lopressor TAB] 25 mg PO BID #60 tablet 07/18/17 Unknown Rx amLODIPine 10 mg PO DAILY #30 07/18/17 Unknown Rx amLODIPine [Norvasc] 10 mg PO DAILY #30 tablet 07/18/17 Unknown Rx metFORMIN [Glucophage] 500 mg PO BIDDIAB #60 tablet 07/18/17 Unknown Rx ED Review of Systems ROS: Stated complaint: IDALMIS Other details as noted in HPI Comment: All other systems reviewed and negative Constitutional: denies: chills, fever Eyes: denies: eye pain, eye discharge, vision change ENT: denies: ear pain, throat pain Respiratory: cough, orthopnea, shortness of breath Cardiovascular: denies: chest pain, edema Gastrointestinal: denies: abdominal pain, nausea, diarrhea Genitourinary: denies: urgency, dysuria, discharge Musculoskeletal: denies: back pain, joint swelling, arthralgia Skin: denies: rash, lesions Neurological: denies: headache, weakness, paresthesias Physical Exam - Physical Exam Vital Signs: Vital Signs 04/26/18 04/26/18 00:48 00:55 Temperature 98.4 F 98.8 F Pulse Rate 86 87 Respiratory 18 Rate Blood Pressure 195/116 195/116 O2 Sat by Pulse 99 97 Oximetry Physical Exam: GENERAL: The patient is well-developed well-nourished. HENT: Normocephalic. Atraumatic. Patient has moist mucous membranes. EYES: Extraocular motions are intact. Pupils equal reactive to light bilaterally. NECK: Supple. Trachea is midline. CHEST/LUNGS: Slightly coarse breath sounds. Mild tachypnea but no accessory muscle use. There is no respiratory distress noted. HEART/CARDIOVASCULAR: Regular. There is no tachycardia. There is no murmur. ABDOMEN: Abdomen is soft, nontender. Patient has normal bowel sounds. There is no abdominal distention. SKIN: Skin is warm and dry. NEURO: The patient is awake, alert, and oriented. The patient is cooperative. The patient has no focal neurologic deficits. The patient has normal speech. MUSCULOSKELETAL: There is no tenderness or deformity. There is no limitation range of motion. There is no evidence of acute injury. ED Course Vital Signs 04/26/18 04/26/18 00:48 00:55 Temperature 98.4 F 98.8 F Pulse Rate 86 87 Respiratory 18 Rate Blood Pressure 195/116 195/116 O2 Sat by Pulse 99 97 Oximetry ED Medical Decision Making - Lab Data Result diagrams: 04/26/18 01:02 04/26/18 01:02 - EKG Data -: EKG Interpreted by Me EKG shows normal: sinus rhythm, axis, intervals, QRS complexes, ST-T waves Rate: normal - EKG Data When compared to previous EKG there are: previous EKG unavailable Interpretation: normal EKG - Radiology Data Radiology results: report reviewed, image reviewed interpreted by me: Chest x-ray does not show any acute process. There are no pleural effusions, obvious pneumonia and there is no pneumothorax. CT angiography does not show any pulmonary embolism, or dissection. - Medical Decision Making Patient's been dealing with a few days of some shortness of breath that appears to worsen with exertion and when lying flat. Negative troponins 2 this far the patient does have an elevated BNP of greater than 1500. Chest x-ray does not show any significant pulmonary edema or effusions. She was given a breathing treatment but as soon as she got up to use the bathroom she became winded again. She presented with very elevated blood pressure came down to a slightly more reasonable level with the Lasix and hydralazine. The patient does not have any good follow-up with primary care or cardiology and with her continued dyspnea and she will be admitted to the hospital for further evaluation and treatment. Accepted for admisison by Dr Hameed. - Differential Diagnosis CHF, PE, Asthma, Pneumonia Critical Care Time: No Critical care attestation.: If time is entered above; I have spent that time in minutes in the direct care of this critically ill patient, excluding procedure time. ED Disposition Clinical Impression: Hypertensive urgency CHF exacerbation Qualifiers: Heart failure type: unspecified Qualified Code(s): I50.9 - Heart failure, unspecified Dyspnea Qualifiers: Dyspnea type: shortness of breath Qualified Code(s): R06.02 - Shortness of breath Disposition: OP ADMIT IP TO THIS HOSP Is pt being admited?: Yes Condition: Fair Time of Disposition: 10:27
--- NOTE | 2018-04-26 06:53 | XRay Report ---
FINAL REPORT PROCEDURE: XR CHEST 1V AP TECHNIQUE: Chest radiograph anteroposterior view. CPT 11490 HISTORY: SOB COMPARISON: No prior studies are available for comparison. FINDINGS: Heart: Normal. Mediastinum/Vessels: Normal. Lungs/Pleural space: Normal. Bony thorax: No acute osseous abnormality. IMPRESSION: No acute cardiopulmonary abnormality.
[2018-04-26] MEDS ORDERED: DUONEB *Not for PRN Use IH ONE (07:17)
[2018-04-26] MEDS ORDERED: K-DUR PO ONE (07:35)
[2018-04-26] MEDS ORDERED: LASIX IV ONE ×2 (08:50→10:33)
[2018-04-26] MEDS ORDERED: APRESOLINE IV ONE (08:50)
--- NOTE | 2018-04-26 10:32 | History and Physical Report ---
History of Present Illness Date of examination: 04/26/18 Date of admission: 04/26/18 Chief complaint: Short of breath History of present illness: 47-year-old female with h/o CHFpEF, DM, HTN presents to the emergency department for complaint of a three-day history of shortness of breath , orthopnea. She states that she is compliant with her medications but she ran out of her meds for last few days. She was recently admitted to [facility] for CHF exacerbation. She denies any chest pain. Her BP noted to be elevated in the ER, and called for admission for further evaluation. Past History Past Medical History: diabetes, hypertension, CHFpEF Social history: lives with family, full code Past surgical history: tubal ligation Family history: hypertension Review of System: Constitutional: no fever, no chills, no weight loss Ears, eyes, nose, mouth and throat: no nasal congestion, no nasal discharge, no sinus pressure, no vision change, no red eye. Neck: No neck pain or rigidity. Cardiovascular: No chest pain, + orthopnea, no palpitations, + leg swelling Respiratory: + shortness of breath, no cough, + congestion, no wheezing Gastrointestinal: no abdominal pain, no nausea, no vomiting Genitourinary : no dysuria, no hematuria Musculoskeletal: no joint swelling or muscle ache Integumentary: no rash, no pruritis Neurological: no parathesias, no numbness, no tingling Endocrine: no cold or heat intolerance, no polyuria or polydipsia Hematologic/Lymphatic: no easy bruising, no easy bleeding, no gland swelling Allergic/Immunologic: no urticaria, no angioedema. Medications and Allergies Allergies Allergy/AdvReac Type Severity Reaction Status Date / Time No Known Allergies Allergy Verified 04/26/18 07:40 Home Medications Medication Instructions Recorded Confirmed Last Taken Type Lisinopril 40 mg PO DAILY 07/16/17 07/16/17 Unknown History metFORMIN 500 mg PO BID 07/16/17 07/16/17 Unknown History Famotidine [Pepcid] 20 mg PO BID #30 tablet 07/18/17 Unknown Rx Lisinopril [Zestril TAB] 40 mg PO QDAY #30 tablet 07/18/17 Unknown Rx Metoprolol [Lopressor TAB] 25 mg PO BID #60 tablet 07/18/17 Unknown Rx amLODIPine 10 mg PO DAILY #30 07/18/17 Unknown Rx amLODIPine [Norvasc] 10 mg PO DAILY #30 tablet 07/18/17 Unknown Rx metFORMIN [Glucophage] 500 mg PO BIDDIAB #60 tablet 07/18/17 Unknown Rx Active Meds: Active Medications Heparin Sodium (Porcine) (Heparin) 5,000 unit SUB-Q Q8H [facility] Exam - Physical Exam Narrative exam: GENERAL: well-developed obese AAF lying on bed appeared to be in no discomfort. HEENT: Normocephalic. Atraumatic. No conjunctival congestion or icterus. Patient has moist mucous membranes. NECK: Supple. Trachea midline. CHEST/LUNGS: Clear to auscultated bilaterally, breathing nonlabored. No wheezes crackles or rhonchi. HEART/CARDIOVASCULAR: Regular in rate and rhythm. S1 and S2 positive. ABDOMEN: Abdomen is soft, nontender. Patient has normal bowel sounds. SKIN: There is no rash. Warm and dry. NEURO: No focal motor deficit. Follows command. MUSCULOSKELETAL: No joint effusion or tenderness. EXTRIMITY: No edema, no cyanosis or clubbing. PSYCH: Cooperative. - Constitutional Vitals: Temp Pulse Resp BP Pulse Ox 98.6 F 76 18 175/97 97 04/26/18 07:44 04/26/18 09:42 04/26/18 07:44 04/26/18 09:42 04/26/18 06:46 Results - Labs CBC & Chem 7: 04/26/18 01:02 04/26/18 01:02 Labs: Abnormal lab results 04/26/18 04/26/18 04/26/18 Range/Units 01:02 01:02 01:02 Hgb 7.9 L (10.1-14.3) gm/dl Hct 26.2 L (30.3-42.9) % MCV 62 L (79-97) fl MCH 19 L (28-32) pg RDW 19.3 H (13.2-15.2) % Potassium 3.4 L (3.6-5.0) mmol/L Glucose 151 H (65-100) mg/dL Calcium 10.8 H (8.4-10.2) mg/dL NT-Pro-B Natriuret Pep 1374 H (0-450) pg/mL - Imaging and Cardiology Chest x-ray: report reviewed CT scan - chest: report reviewed Assessment and Plan Malignant hypertension Acute on chronic diastolic heart failure Diabetes mellitus type 2 Microcytic anemia Hypokalemia - admit to telemetry bed - monitor with serial CE and EKG - will place on Aspirin, statin, and Lasix IV - order 2D echo and consult cardiology - cardiac diet now, daily weights, monitor in's and O's - Place on consistent carb diet with insulin coverage - Start on metoprolol and lisinopril with as needed hydralazine IV for blood pressure control - Monitor electrolytes and replace as needed - Get iron profile, monitor h/H - provide DVT Px with lovenox
[2018-04-26] MEDS ORDERED: ZESTRIL PO SCH (11:00)
[2018-04-26] MEDS ORDERED: LASIX ONE (11:03)
[2018-04-26] MEDS ORDERED: LOPRESSOR ONE (11:04)
[2018-04-26] MEDS ORDERED: LOVENOX SUB-Q ONE (11:04)
[2018-04-26] MEDS: HEPARIN SUB-Q SCH ×2 (11:09→21:46)
[2018-04-26] MEDS: BABY ASPIRIN PO SCH (11:09)
[2018-04-26] MEDS: LOPRESSOR PO SCH ×2 (11:10→21:45)
[2018-04-26] MEDS: LOVENOX SUB-Q SCH (11:10)
[2018-04-26] MEDS: HumuLIN R SUB-Q SCH ×3 (11:53→22:21)
--- NOTE | 2018-04-26 12:15 | Consultation ---
History of Present Illness Consult date: 04/26/18 Requesting physician: KHADIJAH GONG Consult reason: congestive heart failure History of present illness: This is a 47-year-old female with history of hypertension diabetes nonsmoker who was at [facility] for congestive heart failure where she ran out of her blood pressure medicine was treated with IV diuretics and echo cardiac exam shows normal function with moderate LVH with mild pulmonary hypertension patient states compliance with medications here but blood pressure is elevated has been having shortness of breath for the last 3 days patient states unable down flat and patient states also having some cough but no fever or chills or syncope or melena or palpitations Past History Past Medical History: diabetes, heart failure, hypertension Past Surgical History: denies: No surgical history Social history: denies: smoking, alcohol abuse, prescription drug abuse Family history: denies: no significant family history Medications and Allergies Allergies Allergy/AdvReac Type Severity Reaction Status Date / Time No Known Allergies Allergy Verified 04/26/18 07:40 Home Medications Medication Instructions Recorded Confirmed Last Taken Type Lisinopril 40 mg PO DAILY 07/16/17 07/16/17 Unknown History metFORMIN 500 mg PO BID 07/16/17 07/16/17 Unknown History Famotidine [Pepcid] 20 mg PO BID #30 tablet 07/18/17 Unknown Rx Lisinopril [Zestril TAB] 40 mg PO QDAY #30 tablet 07/18/17 Unknown Rx Metoprolol [Lopressor TAB] 25 mg PO BID #60 tablet 07/18/17 Unknown Rx amLODIPine 10 mg PO DAILY #30 07/18/17 Unknown Rx amLODIPine [Norvasc] 10 mg PO DAILY #30 tablet 07/18/17 Unknown Rx metFORMIN [Glucophage] 500 mg PO BIDDIAB #60 tablet 07/18/17 Unknown Rx Active Meds: Active Medications Amlodipine Besylate (Norvasc) 10 mg PO QDAY [facility] Aspirin (Baby Aspirin) 81 mg PO QDAY [facility] Last Admin: 04/26/18 11:09 Dose: 81 mg Enoxaparin Sodium (Lovenox) 40 mg SUB-Q QDAY [facility] Last Admin: 04/26/18 11:10 Dose: 40 mg Heparin Sodium (Porcine) (Heparin) 5,000 unit SUB-Q Q8H [facility] Last Admin: 04/26/18 11:09 Dose: 5,000 unit Insulin Human Regular (Humulin R) 0 units SUB-Q [facility]; Protocol Last Admin: 04/26/18 11:53 Dose: Not Given Lisinopril (Zestril) 20 mg PO QDAY [facility] Last Admin: 04/26/18 11:10 Dose: 20 mg Metoprolol Tartrate (Lopressor) 25 mg PO BID [facility] Last Admin: 04/26/18 11:10 Dose: 25 mg Potassium Chloride (K-Dur) 30 meq PO QDAY [facility] Review of Systems All systems: negative (as per the HPI) Physical Examination Vital Signs Temp Pulse BP Pulse Ox 98.4 F 86 195/116 99 04/26/18 00:48 04/26/18 00:48 04/26/18 00:48 04/26/18 00:48 General appearance: no acute distress, well-nourished HEENT: Positive: PERRL, Mucus Membranes Moist Neck: Positive: neck supple, trachea midline Cardiac: Positive: Reg Rate and Rhythm, S1/S2. Negative: Audible Murmur Lungs: Positive: clear to auscultation, Normal Breath Sounds Neuro: Positive: Grossly Intact Abdomen: Positive: Soft, Active Bowel Sounds. Negative: Tender, Distended Female genitourinary: deferred Skin: Positive: Clear Incision: Cardiac Cath Site Musculoskeletal: No Pain, Normal Range of Motion Extremities: Present: normal. Absent: edema Results 04/26/18 01:02 04/26/18 01:02 Cardiac Enzymes 04/26/18 Range/Units 01:02 AST 21 (5-40) units/L CBC 04/26/18 Range/Units 01:02 WBC 7.4 (4.5-11.0) K/mm3 RBC 4.20 (3.65-5.03) M/mm3 Hgb 7.9 L (10.1-14.3) gm/dl Hct 26.2 L (30.3-42.9) % Plt Count 212 (140-440) K/mm3 Lymph # 1.7 (1.2-5.4) K/mm3 Pope # 0.5 (0.0-0.8) K/mm3 Eos # 0.1 (0.0-0.4) K/mm3 Baso # 0.1 (0.0-0.1) K/mm3 Comprehensive Metabolic Panel 07/14/18 Range/Units 01:02 Sodium 139 (137-145) mmol/L Potassium 3.4 L (3.6-5.0) mmol/L Chloride 100.7 (98-107) mmol/L Carbon Dioxide 27 (22-30) mmol/L BUN 13 (7-17) mg/dL Creatinine 1.0 (0.7-1.2) mg/dL Glucose 151 H (65-100) mg/dL Calcium 10.8 H (8.4-10.2) mg/dL AST 21 (5-40) units/L ALT 21 (7-56) units/L Alkaline Phosphatase 42 (35-129) units/L Total Protein 6.4 (6.3-8.2) g/dL Albumin 4.0 (3.9-5) g/dL - Imaging and Cardiology Stress echo: other (07/2017 no significant ischemia) Echo: report reviewed (04/04/2018 at [place] normal LV function moderate LVH impaired relaxation pattern grade 2 mild pulmonary hypertension) EKG interpretations - Telemetry EKG Rhythm: Sinus Rhythm (normal sinus rhythm nonspecific ST-T) Assessment and Plan Acute respiratory failure Acute on chronic diastolic heart failure Hypertensive urgency Anemia Diabetes Recommend increasing lisinopril to 20 mg twice a day continue IV diuretics as patient has mild JVD and unable to lie down flat , replace potassium will nuclear stress test in the morning to rule out ischemia given patient's risk factors continue blood pressure control
[2018-04-26] MEDS ORDERED: APRESOLINE IV PRN (12:34)
[2018-04-26] MEDS: NORVASC PO SCH (12:36)
--- NOTE | 2018-04-26 14:58 | Cat Scan Report ---
FINAL REPORT PROCEDURE: CT ANGIO CHEST TECHNIQUE: Computerized tomographic angiography of the chest was performed during the IV injection of iodinated nonionic contrast including image processing. The image data was postprocessed using 2-dimensional multiplanar reformatted (MPR) and 3-dimensional (MIP and/or volume rendered) techniques. HISTORY: SOB, elevated dimer COMPARISON: No prior studies are available for comparison. FINDINGS: Pulmonary outflow tract, right and left main pulmonary arteries and their proximal branches: There is a small peripheral filling defect in 1 of the posterior branches of the right upper lobe pulmonary artery. This is only visualized on 1 of the axial images and is not confirmed on the sagittal or coronal images and is consistent with a partial volume averaging artifact. No filling defects are seen that would suggest pulmonary embolus. Pulmonary outflow tract right and left main pulmonary arteries in the proximal branches otherwise appear normal. Pericardium: No evidence of pericardial effusion. The heart is mildly enlarged. Thoracic aorta: No evidence of aneurysmal dilatation or dissection. Coronary arteries: Are partially calcified indicating atherosclerotic disease. Mediastinum and hilar regions: Nonspecific subcentimeter lymph nodes are visualized. No pathologically enlarged lymph nodes or masses are identified. Lung Bernal: Thin linear band of atelectasis visualized in the lingula which is otherwise unremarkable. Lung bernal otherwise are clear. Upper abdomen: 3 centimeter low-density nodule projects in the upper 3rd of the right kidney which appears represent renal cortical cyst. No acute abnormalities are seen in the upper abdomen. Other: No acute bony abnormalities are identified. There is moderate thoracolumbar scoliosis convex to the right apex at T12. IMPRESSION: No evidence of pulmonary embolus. Thin band of atelectasis visualized in the lingula. Moderate thoracolumbar scoliosis. Mild cardiomegaly. No other abnormalities are identified.
[2018-04-26] MEDS: LASIX IV SCH (17:50)
[2018-04-26] MEDS: ZESTRIL PO SCH (21:45)
[2018-04-27] MEDS: HEPARIN SUB-Q SCH (04:01)
[2018-04-27 06:10] LABS: BUN/Creatinine Ratio 18; Blood Urea Nitrogen 16 mg/dL (7-17); Calcium 10.4 mg/dL (8.4-10.2); Hemolysis Index 0
[2018-04-27] MEDS: LASIX IV SCH (06:30)
[2018-04-27] MEDS: HumuLIN R SUB-Q SCH ×2 (07:17→12:15)
[2018-04-27] MEDS ORDERED: LEXISCAN IV ONE ×2 (08:10→08:25)
[2018-04-27] MEDS ORDERED: LOPRESSOR PO SCH ×2 (09:51→12:12)
[2018-04-27] MEDS ORDERED: K-DUR PO SCH (10:00)
[2018-04-27] MEDS: NORVASC PO SCH (12:18)
[2018-04-27] MEDS: ZESTRIL PO SCH (12:18)
[2018-04-27] MEDS: BABY ASPIRIN PO SCH (12:19)
[2018-04-27] MEDS: LOVENOX SUB-Q SCH (12:19)
--- NOTE | 2018-04-27 12:19 | Discharge Summary ---
Providers - Providers Date of Admission: 04/26/18 10:27 Date of discharge: 04/27/18 Attending physician: KHADIJAH GONG 04/26/18 10:33 Consult to Physician [CONS] Routine Comment: A/S KRISTOPHER NOTIFIED 1100 Consulting Provider: KELLY GILL Physician Instructions: Reason For Exam: CHF Hospitalization Condition: Fair Hospital course: 47-year-old female with h/o CHFpEF, DM, HTN presents to the emergency department for complaint of a three-day history of shortness of breath , orthopnea. She states that she is compliant with her medications but she ran out of her meds for last few days. She was recently admitted to [facility] for CHF exacerbation. She denies any chest pain. Her BP noted to be elevated in the ER, and called for admission for further evaluation. Discharge Diagnosis and management: Malignant hypertension, due to noncompliance Acute on chronic diastolic heart failure, due to uncontrolled BP Diabetes mellitus type 2 Microcytic anemia, Hypokalemia, repleted, likely from diuresis Disposition: - TO HOME OR SELFCARE Time spent for discharge: 34 minutes Core Measure Documentation - Palliative Care Palliative Care/ Comfort Measures: Not Applicable - Core Measures Any of the following diagnoses?: none Exam - Physical Exam Narrative exam: GENERAL: well-developed obese AAF lying on bed appeared to be in no discomfort. HEENT: Normocephalic. Atraumatic. No conjunctival congestion or icterus. Patient has moist mucous membranes. NECK: Supple. Trachea midline. CHEST/LUNGS: Clear to auscultated bilaterally, breathing nonlabored. No wheezes crackles or rhonchi. HEART/CARDIOVASCULAR: Regular in rate and rhythm. S1 and S2 positive. ABDOMEN: Abdomen is soft, nontender. Patient has normal bowel sounds. SKIN: There is no rash. Warm and dry. NEURO: No focal motor deficit. Follows command. MUSCULOSKELETAL: No joint effusion or tenderness. EXTRIMITY: No edema, no cyanosis or clubbing. PSYCH: Cooperative. - Constitutional Vitals: Temp Pulse Resp BP Pulse Ox 99.0 F 63 18 119/78 95 04/27/18 03:38 04/27/18 10:06 04/27/18 03:38 04/27/18 10:06 04/27/18 03:38 Plan Activity: advance as tolerated Weight Bearing Status: Weight Bear as Tolerated Diet: diabetic Follow up with: NIDIA ESPINO MD [Other] - 3-5 Days Prescriptions: AtorvaSTATin [Lipitor] 20 mg PO QHS #30 tab amLODIPine [Norvasc] 10 mg PO QDAY #30 tablet Aspirin [Aspirin BABY CHEW TAB] 81 mg PO QDAY #30 tab.chew Lisinopril [Zestril TAB] 40 mg PO QDAY #30 tablet metFORMIN 500 mg PO BID #60 Metoprolol [Lopressor TAB] 25 mg PO BID #60 tablet
--- NOTE | 2018-04-27 12:36 | Progress Note ---
Assessment and Plan Acute respiratory failure Acute on chronic diastolic heart failure Hypertensive urgency Anemia Diabetes Stress test shows no severe ischemia patient is compensated heart failure. Patient is noncompliant with medications for blood pressure or compliance if her BP control and help prevent further episodes of congestive heart failure. Hydralazine for better BP control pills diuretics and patient will cardilogy w- up Subjective Date of service: 04/27/18 Principal diagnosis: heart failure Interval history: pt able to ly flat and sob has improved Objective Vital Signs Temp Pulse Pulse Resp BP BP Pulse Ox 04/27/18 10:06 63 119/78 04/27/18 10:05 55 L 118/62 04/27/18 10:04 60 119/62 04/27/18 10:03 80 105/70 04/27/18 10:02 113 H 157/70 04/27/18 09:01 74 156/95 04/27/18 08:00 71 04/27/18 03:38 99.0 F 74 18 172/89 95 04/27/18 00:12 95 H 18 04/26/18 23:17 98.8 F 71 17 163/82 99 04/26/18 21:45 94 H 177/94 04/26/18 19:41 98.5 F 94 H 17 177/94 100 04/26/18 19:22 94 H 04/26/18 15:31 87 04/26/18 15:26 98.5 F 87 16 148/76 98 04/26/18 15:06 74 16 146/77 96 04/26/18 12:36 187/104 - Physical Examination General: No Apparent Distress HEENT: Positive: PERRL, Mucus Membranes Moist Neck: Positive: neck supple, trachea midline Cardiac: Positive: Reg Rate and Rhythm Lungs: Positive: clear to auscultation Neuro: Positive: Grossly Intact Abdomen: Positive: Soft, Active Bowel Sounds. Negative: Tender, Distended Skin: Positive: Clear Incision: Cardiac Cath Site Musculoskeletal: No Pain, Normal Range of Motion Extremities: Present: normal. Absent: edema - Labs and Meds Comprehensive Metabolic Panel 04/27/18 Range/Units 04:57 Sodium 141 (137-145) mmol/L Potassium 3.4 L (3.6-5.0) mmol/L Chloride 99.8 (98-107) mmol/L Carbon Dioxide 28 (22-30) mmol/L BUN 16 (7-17) mg/dL Creatinine 0.9 (0.7-1.2) mg/dL Glucose 116 H (65-100) mg/dL Calcium 10.4 H (8.4-10.2) mg/dL - Imaging and Cardiology Pharmacologic stress test: report reviewed (no signficant ischemia noted) Stress echo: other (07/2017 no significant ischemia) Echo: report reviewed (04/04/2018 at [place] normal LV function moderate LVH impaired relaxation pattern grade 2 mild pulmonary hypertension)
--- NOTE | 2018-04-27 13:13 | Treadmill Report ---
NUCLEAR PERFUSION STUDY/CARDIAC STUDY REASON FOR STUDY: Shortness of breath. IMAGING PROTOCOL: Single isotope. The patient received 10 mCi of Technetium 99m tetrofosmin for resting image and 28 mCi of Technetium 99m tetrofosmin for stress imaging. The imaging for the whole procedure was completed 30-90 minutes following the initial injection of Technetium 99m tetrofosmin. The SPECT imaging in the 180 degree arc was performed in the right anterior oblique projection. Computerized reconstruction of the images was performed for analysis. IMAGING RESULTS: Cavity is dilated on both stress and rest with normal distribution in anterior, inferior, septal, and apical regions. Gated SPECT shows EF 30%. The patient was infused Lexiscan with no EKG changes. SUMMARY: 1. Negative Lexiscan EKG. 2. Dilated LV seen in both stress and rest. No significant ischemia noted. Normal myocardial perfusion in anterior, inferior, septal, and apical regions. Gated SPECT calculated 30%. We suggest echocardiogram to quantify LV function. JOB# [id number] ARABELLA/RUTHY
[2018-04-27] MEDS ORDERED: APRESOLINE PO SCH (14:00)
[2018-04-27 14:23] VITALS: BP 175/95
[2018-04-28] MEDS ORDERED: LASIX PO SCH (10:00)
== END 2018-04-27 15:30 | disposition home or self-care (01) | DRG 291 ==
LOC: ED 00:41 → 4A 10:27
PROVIDERS: ADMIT Internal Medicine; ATTEND Internal Medicine
DX: I11.0 Hypertensive heart disease with heart failure (principal); J96.00 Acute respiratory failure, unspecified whether with hypoxia or hypercapnia; I16.0 Hypertensive urgency; I50.33 Acute on chronic diastolic (congestive) heart failure; E11.9 Type 2 diabetes mellitus without complications; D50.9 Iron deficiency anemia, unspecified; R35.8 Other polyuria; I27.20 Pulmonary hypertension, unspecified; E87.6 Hypokalemia; Z91.19 Patient's noncompliance with other medical treatment and regimen; Z98.51 Tubal ligation status; Z82.49 Family history of ischemic heart disease and other diseases of the circulatory system
CPT/HCPCS: 36415; 71045; 71275; 78452; 80048; 80053; 82962; 83735; 83880; 84484; 85025; 85379; 93005; 93010; 93017; 93306; 94640; A9502; J0360; J1644; J1650; J1940; J2785; Q9967